=== PATIENT | female | born 2000 | race Two or more races ===

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

== ENCOUNTER → 2020-07-23 | Outpatient (CLI) | payer OTHER | END | disposition home or self-care (01) | LOC: PRENATAL 14:27 | PROVIDERS: ATTEND Obstetrics & Gynecology Maternal & Fetal Medicine | DX: O35.0XX1 Maternal care for (suspected) central nervous system malformation in fetus, fetus 1 (principal); O35.3XX1 Maternal care for (suspected) damage to fetus from viral disease in mother, fetus 1; O98.512 Other viral diseases complicating pregnancy, second trimester; O99.891 Other specified diseases and conditions complicating pregnancy; Z36.89 Encounter for other specified antenatal screening; Z3A.19 19 weeks gestation of pregnancy ==

== ENCOUNTER 2020-10-12 20:42 | Outpatient (CLI) | payer OTHER ==
[2020-10-12] MEDS ORDERED: PRENATAL CAPLE1 EAC1 PO (21:16)
[2020-10-12] MEDS ORDERED: FOLIC ACID20 MG PO (21:16)
== END 2020-10-13 13:26 | disposition home or self-care (01) ==
LOC: OBS/DEL 20:42
PROVIDERS: ATTEND Obstetrics & Gynecology
DX: O23.43 Unspecified infection of urinary tract in pregnancy, third trimester (principal)

== ENCOUNTER 2020-12-10 13:35 | Inpatient (IN) | payer OTHER ==
[~2020-12-10] VITALS: Ht 149.9 cm; Wt 74.4 kg
[~2020-12-10 13:35] MED LIST changes: +FOLIC ACID20 MG PO; +PRENATAL CAPLE1 EAC1 PO
== END 2020-12-12 18:07 | disposition home or self-care (01) | DRG 807 ==
LOC: OB/GYN 13:35 → LDR 13:35 → OB/GYN 16:26
PROVIDERS: ADMIT Obstetrics & Gynecology; ATTEND Obstetrics & Gynecology
PROC: 10E0XZZ Delivery of Products of Conception, External Approach (ICD-10-PCS; principal; 2020-12-10)
PROC: 10907ZC Drainage of Amniotic Fluid, Therapeutic from Products of Conception, Via Natural or Artificial Opening (ICD-10-PCS; 2020-12-10)
PROC: 4A1HXFZ Monitoring of Products of Conception, Cardiac Rhythm, External Approach (ICD-10-PCS; 2020-12-10)
DX: O80 Encounter for full-term uncomplicated delivery (principal); Z37.0 Single live birth; Z3A.39 39 weeks gestation of pregnancy; Z20.822 Contact with and (suspected) exposure to COVID-19

== ENCOUNTER 2021-12-05 12:15 | Emergency (ER) | payer OTHER ==
[~2021-12-05] VITALS: Ht 147.3 cm; Wt 61.7 kg
[2021-12-05] MEDS ORDERED: PRENATAL + DHA1 EAC1 PO (12:37)
== END 2021-12-05 14:25 | disposition home or self-care (01) ==
LOC: ER 12:15
DX: O98.512 Other viral diseases complicating pregnancy, second trimester (principal); Z3A.17 17 weeks gestation of pregnancy; J10.1 Influenza due to other identified influenza virus with other respiratory manifestations; B34.9 Viral infection, unspecified; Z20.822 Contact with and (suspected) exposure to COVID-19; Z88.1 Allergy status to other antibiotic agents

== ENCOUNTER 2021-12-18 12:07 | Outpatient (CLI) | payer OTHER ==
[~2021-12-18 12:07] MED LIST changes: +PRENATAL + DHA1 EAC1 PO
== END 2021-12-18 15:19 | disposition home or self-care (01) ==
LOC: PRENATAL 12:07
PROVIDERS: ATTEND Obstetrics & Gynecology Maternal & Fetal Medicine
DX: O35.0XX0 Maternal care for (suspected) central nervous system malformation in fetus, not applicable or unspecified (principal); O35.3XX0 Maternal care for (suspected) damage to fetus from viral disease in mother, not applicable or unspecified; O30.90 Multiple gestation, unspecified, unspecified trimester; Z3A.19 19 weeks gestation of pregnancy

== ENCOUNTER 2022-01-04 19:30 | Inpatient (IN) | payer OTHER ==
[~2022-01-04] VITALS: Ht 149.9 cm; Wt 67.1 kg
== END 2022-01-08 13:46 | disposition home or self-care (01) | DRG 998 ==
LOC: ER 19:30 → LDR 01-05 18:46 → OB/GYN 01-05 18:46 → LDR 01-06 00:42 → OB/GYN 01-06 08:28
PROVIDERS: ADMIT Obstetrics & Gynecology; ATTEND Obstetrics & Gynecology
PROC: 4A1HXCZ Monitoring of Products of Conception, Cardiac Rate, External Approach (ICD-10-PCS; principal; 2022-01-05)
PROC: B246ZZZ Ultrasonography of Right and Left Heart (ICD-10-PCS; 2022-01-05)
PROC: 4A033R1 Measurement of Arterial Saturation, Peripheral, Percutaneous Approach (ICD-10-PCS; 2022-01-05)
DX: O99.892 Other specified diseases and conditions complicating childbirth (principal); E87.1 Hypo-osmolality and hyponatremia; R00.0 Tachycardia, unspecified; Z3A.22 22 weeks gestation of pregnancy; Z20.822 Contact with and (suspected) exposure to COVID-19; O26.892 Other specified pregnancy related conditions, second trimester; K52.89 Other specified noninfective gastroenteritis and colitis; E86.0 Dehydration; E87.6 Hypokalemia

== ENCOUNTER 2022-02-19 12:57 | Outpatient (CLI) | payer OTHER | END 2022-02-19 14:25 | disposition home or self-care (01) | LOC: PRENATAL 12:57 | PROVIDERS: ATTEND Obstetrics & Gynecology Maternal & Fetal Medicine | DX: O26.849 Uterine size-date discrepancy, unspecified trimester (principal); O30.90 Multiple gestation, unspecified, unspecified trimester; Z3A.28 28 weeks gestation of pregnancy; Z88.8 Allergy status to other drugs, medicaments and biological substances ==

== ENCOUNTER 2022-04-02 22:13 | Outpatient (CLI) | payer OTHER | END 2022-04-03 00:09 | disposition home or self-care (01) | LOC: OBS/DEL 22:13 | PROVIDERS: ATTEND Obstetrics & Gynecology | DX: O26.893 Other specified pregnancy related conditions, third trimester (principal); Z3A.34 34 weeks gestation of pregnancy ==

== ENCOUNTER 2022-04-16 12:28 | Outpatient (CLI) | payer OTHER | END 2022-04-16 14:52 | disposition home or self-care (01) | LOC: PRENATAL 12:28 | PROVIDERS: ATTEND Obstetrics & Gynecology Maternal & Fetal Medicine | DX: O26.849 Uterine size-date discrepancy, unspecified trimester (principal); O30.90 Multiple gestation, unspecified, unspecified trimester; O36.5990 Maternal care for other known or suspected poor fetal growth, unspecified trimester, not applicable or unspecified; Z3A.36 36 weeks gestation of pregnancy; O41.00X0 Oligohydramnios, unspecified trimester, not applicable or unspecified ==